=== PATIENT | female | born 1985 | race Caucasian/White ===

== ENCOUNTER 2021-02-15 13:46 | Emergency (ER) | payer OTHER ==
[~2021-02-15] VITALS: Ht 157.5 cm; Wt 68.0 kg
[~2021-02-15 13:46] MED LIST: ACET-2619; ACET-9525 PO; CEPH500C16 PO; IBUP-2230 PO; PREN-234 PO
[2021-02-15 14:18] VITALS: BP 117/72
[2021-02-15] MEDS ORDERED: cefTRIAXone 500 MG in LIDOCAINE MPF 1% 1 ML IM ONE (14:25)
[2021-02-15] MEDS ORDERED: cefTRIAXone 500 MG VIAL ONE (14:52)
[2021-02-15] MEDS ORDERED: LIDOCAINE MPF 1% 5 ML ONE (14:52)
--- NOTE | 2021-02-15 14:54 | NUR ---
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 DENIES PMH NKA
[2021-02-15] MEDS ORDERED: ACETAMINOPHEN EXTRA STRENGTH 500 MG TAB PO ONE (14:55)
[2021-02-15] MEDS ORDERED: PYR100 PO (15:04)
[2021-02-15] MEDS ORDERED: DOXY-690 PO (15:04)
[2021-02-15] MEDS ORDERED: ACET-9800 PO (15:04)
[2021-02-15] MEDS ORDERED: CEPH-588 PO (15:04)
[2021-02-15 15:17] VITALS: BP 122/78
--- NOTE | 2021-02-15 15:19 | NUR ---
Patient discharged with v/s stable. Written and verbal after care instructions given FOR UTI and explained. Patient alert, oriented and verbalized understanding of instructions. Ambulatory with steady gait. All questions addressed prior to discharge. ID band removed. Patient advised to follow up with PMD. Rx of KEFLEX, PYRIDIUM, VIBRAMYCIN, AND TYNENOL given. Patient educated on indication of medication including possible reaction and side effects. Opportunity to ask questions provided and answered.
== END 2021-02-15 15:17 | disposition home or self-care (01) ==
LOC: MED 13:46
DX: N39.0 Urinary tract infection, site not specified (principal); Z20.2 Contact with and (suspected) exposure to infections with a predominantly sexual mode of transmission; Z79.899 Other long term (current) drug therapy
CPT/HCPCS: 36415; 81002; 81025; 86592; 86703; 96372; 99283; J0696; J2001

== ENCOUNTER 2021-09-25 09:55 | Emergency (ER) | payer OTHER ==
[~2021-09-25] VITALS: Ht 157.5 cm; Wt 63.5 kg
[~2021-09-25 09:55] MED LIST changes: +ACET-9800 PO; +CEPH-588 PO; +DOXY-690 PO; +PYR100 PO
[2021-09-25 09:58] VITALS: BP 127/75
--- NOTE | 2021-09-25 10:04 | NUR ---
PT AMBULATED TO BED 10 WITH STEADY GAIT
--- NOTE | 2021-09-25 10:05 | NUR ---
36 Y/O FEMALE BIB SELF C/O OF LEFT KNEE PAIN 08/30, PER PT SHE TRIPPED AND FELL ON HER KNEES. NOTED SWELLING ON THE RIGHT SIDE OF THE KNEE, TENDER TO TOUCH. DENIES ANY PAIN ON HER CALF, ANKLE. 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
--- NOTE | 2021-09-25 10:14 | NUR ---
PT WC ASSISTED TO BATHROOM
--- NOTE | 2021-09-25 10:15 | NUR ---
LEFT KNEE ELEVATED WITH PILLOW
--- NOTE | 2021-09-25 10:16 | NUR ---
TIKI HUNTER AT BEDSIDE FOR EVALUATION
[2021-09-25] MEDS ORDERED: KETOROLAC 30 MG/ML VIAL IM ONE (10:25)
--- NOTE | 2021-09-25 10:26 | NUR ---
XRAY AT BEDSIDE
--- NOTE | 2021-09-25 11:21 | NUR ---
PT PLACED IN LEFT KNEE IMMOBILIZOR CMS WNL BEFORE AND AFTER. PT ALSO GIVEN CRUTCHES THAT WERE ADJUSTED TO PT'S SIZE AND HIEGHT. PT STATES THAT THEY ALREADY KNOW HOW TO USE CRUTCHES AND SHOWED PROPER DEMONSTRATION ON HOW TO USE THEM. PT HAD NO FURTHER QUESTIONS. PA AND RN NOTIFIED.
[2021-09-25] MEDS ORDERED: HYDROcodone/APAP 5/325 MG 1 TAB TAB PO ONE (11:25)
[2021-09-25] MEDS ORDERED: IBUP-2213 PO (11:50)
[2021-09-25] MEDS ORDERED: ACET-6951 PO (11:54)
[2021-09-25 12:03] VITALS: BP 154/112
== END 2021-09-25 12:03 | disposition home or self-care (01) ==
LOC: MED 09:55
DX: S83.92XA Sprain of unspecified site of left knee, initial encounter (principal); W18.30XA Fall on same level, unspecified, initial encounter; Y93.89 Activity, other specified; Y92.89 Other specified places as the place of occurrence of the external cause; Y99.8 Other external cause status
CPT/HCPCS: 73562; 81002; 81025; 96372; 99283; J1885

== ENCOUNTER 2023-10-14 08:26 | Emergency (ER) | payer OTHER ==
[~2023-10-14] VITALS: Ht 157.5 cm; Wt 73.5 kg
[~2023-10-14 08:26] MED LIST changes: +ACET-6951 PO; +IBUP-2213 PO
[2023-10-14 08:27] VITALS: BP 109/74; PULSE 78; RESP 16; TEMP 98.1; O2SAT 100
[2023-10-14 09:42] LABS: APPEARANCE,URINE CLEAR (CLEAR); BILIRUBIN,URINE NEGATIVE (NEGATIVE); BLOOD, URINE 3+ (NEGATIVE); COLOR,URINE YELLOW (YELLOW); LEUKOCYTE ESTERASE ,URINE 3+ (NEGATIVE); NITRITE, URINE POSITIVE (NEGATIVE); PH,URINE 6.5 (5.0-9.0); PROTEIN,URINE 1+ (NEGATIVE); UGLUCOSE NEGATIVE (NEGATIVE); UROBILINOGEN,URINE 0.2 EU/dL (0.2 - 1)
[2023-10-14 10:07] LABS: RBC,URINE 20-50 /HPF (0-5); WBC,URINE 20-60 /HPF (0-5)
[2023-10-14 10:08] LABS: BACTERIA,URINE >30 (MANY) /HPF (None Seen); MUCUS,URINE None Seen /LPF (None Seen); SQUAMOUS EPITHELIAL CELL,UR 0-3 (FEW) /LPF (0-3 (FEW)); TRICHOMONAS,URINE None Seen /HPF (None Seen); WHITE BLOOD CELL CASTS,URINE None Seen /LPF (None Seen); YEAST,URINE None Seen /HPF (None Seen)
[2023-10-14] MEDS ORDERED: CEPH-588 PO (10:16)
[2023-10-14] MEDS ORDERED: PYR100 PO (10:16)
[2023-10-14 10:37] VITALS: BP 103/72; PULSE 75; RESP 16; TEMP 98.1; O2SAT 100
[2023-10-16] MEDS ORDERED: CIPR500T4 PO (16:54)
== END 2023-10-14 10:37 | disposition home or self-care (01) ==
LOC: MED 08:26
DX: N39.0 Urinary tract infection, site not specified (principal); K21.9 Gastro-esophageal reflux disease without esophagitis; R07.89 Other chest pain; Z79.899 Other long term (current) drug therapy
CPT/HCPCS: 81001; 81025; 87086; 87186; 93005; 99284